=== PATIENT | male | born 1945 | race Caucasian/White ===

== ENCOUNTER → 2020-07-29 | Outpatient (CLI) | payer MEDICARE | END | disposition home or self-care (01) | LOC: US 14:30 | PROVIDERS: ATTEND Urology | DX: N28.1 Cyst of kidney, acquired (principal); R97.20 Elevated prostate specific antigen [PSA] ==

== ENCOUNTER → 2023-08-09 | Outpatient (CLI) | payer MEDICARE | LOC: US 10:59 | PROVIDERS: ATTEND Urology | DX: N28.1 Cyst of kidney, acquired (principal) ==